=== PATIENT | female | born 1950 | race Caucasian/White ===

== ENCOUNTER 2022-09-20 14:08 | Inpatient (IN) | payer BC, MEDICARE, OTHER ==
[~2022-09-20] VITALS: Ht 157.5 cm; Wt 76.5 kg
[2022-09-20 15:29] LABS: BASO # 0.1 10^3/uL (0.0-0.2); BASO % 0.7 % (0.0-1.0); EOS # 0.1 10^3/uL (0.0-0.5); EOS % 1.4 % (0.0-3.0); HEMATOCRIT 42.7 % (36.0-47.0); HEMOGLOBIN 13.7 g/dl (12.0-15.5); LYMPH # 2.1 10^3/uL (1.5-5.0); MEAN CORPUSCULAR HEMOGLOBIN 28.7 pg (27.0-33.0); MEAN CORPUSCULAR HGB CONC 32.1 g/dl (32.0-36.5); MEAN CORPUSCULAR VOLUME 89.3 fl (80.0-96.0); MONO # 0.6 10^3/uL (0.0-0.8); MONO % 8.6 % (2.0-8.0); NEUTROPHILS # 4.3 10^3/uL (1.5-8.5); NEUTROPHILS % 59.9 % (36.0-66.0); PLATELET COUNT, AUTOMATED 258 10^3/uL (150-450); RED BLOOD COUNT 4.78 10^6/uL (4.00-5.40); WHITE BLOOD COUNT 7.2 10^3/uL (4.0-10.0)
[2022-09-20 15:53] LABS: RSV AMPLIFICATION NEGATIVE (NEGATIVE)
[2022-09-20 15:56] LABS: BLOOD UREA NITROGEN 16 MG/DL (7-18); CALCIUM LEVEL 10.3 MG/DL (8.8-10.2); CARBON DIOXIDE LEVEL 24 MEQ/L (21-32); CHLORIDE LEVEL 104 MEQ/L (98-107); ETHYL ALCOHOL (ETHANOL) < 0.003 % (0.000-0.010); FREE T4 1.49 NG/DL (0.76-1.46); GLOMERULAR FILTRATION RATE > 60.0 (>39); GLUCOSE, FASTING 198 MG/DL (70-100); MAGNESIUM LEVEL 2.3 MG/DL (1.8-2.4); POTASSIUM SERUM 5.9 MEQ/L (3.5-5.1); SODIUM LEVEL 133 MEQ/L (136-145)
[2022-09-20] MEDS ORDERED: LEVO175T2 PO (18:36)
[2022-09-20] MEDS ORDERED: METF-838 PO (18:36)
[2022-09-20] MEDS ORDERED: INFL10VL IV (18:36)
[2022-09-20] MEDS ORDERED: LISI2.5T9 PO (18:36)
[2022-09-20] MEDS ORDERED: METO1TAB32 PO (18:36)
[2022-09-20] MEDS ORDERED: ESTR62CR VG (18:36)
[2022-09-20] MEDS ORDERED: ELIQ5TAB PO (18:36)
[2022-09-20] MEDS ORDERED: METO1TAB7 PO (18:41)
[2022-09-20] MEDS ORDERED: HOME MED LIST COMPLETE! XX SCH (18:45)
[2022-09-20] MEDS ORDERED: DEXTROSE 50% 50 ML SYRINGE IV PRN (19:05)
[2022-09-20] MEDS ORDERED: GLUCOSE 4GM CHEW TABLET PO PRN (19:05)
[2022-09-20] MEDS ORDERED: GLUCAGON INJ 1MG VIAL SC PRN (19:05)
[2022-09-20 20:40] VITALS: BP 153/88
[2022-09-20] MEDS ORDERED: LEVEMIR (INSULIN DETEMIR) 1 UNITS/0.01ML SC SCH (21:00)
[2022-09-20] MEDS ORDERED: INSULIN LISPRO (NovoLOG) PER UNIT SC SCH (21:00)
[2022-09-20] MEDS: APIXABAN 5 MG TAB (ELIQUIS) PO SCH (21:53)
[2022-09-21] VITALS (7 sets, daily range): BP systolic 123–149; BP diastolic 69–82
[2022-09-21] MEDS: METOPROLOL TART 25 MG TABLET PO SCH ×5 (00:11→23:59)
[2022-09-21 06:38] LABS: BASO # 0.1 10^3/uL (0.0-0.2); BASO % 0.7 % (0.0-1.0); EOS # 0.1 10^3/uL (0.0-0.5); EOS % 1.8 % (0.0-3.0); HEMATOCRIT 38.5 % (36.0-47.0); HEMOGLOBIN 12.3 g/dl (12.0-15.5); LYMPH # 3.7 10^3/uL (1.5-5.0); LYMPH % 48.9 % (24.0-44.0); MEAN CORPUSCULAR HEMOGLOBIN 28.7 pg (27.0-33.0); MEAN CORPUSCULAR HGB CONC 31.9 g/dl (32.0-36.5); MEAN CORPUSCULAR VOLUME 89.7 fl (80.0-96.0); MONO # 0.6 10^3/uL (0.0-0.8); MONO % 8.2 % (2.0-8.0); NEUTROPHILS # 3.1 10^3/uL (1.5-8.5); NEUTROPHILS % 40.3 % (36.0-66.0); PLATELET COUNT, AUTOMATED 245 10^3/uL (150-450); RED BLOOD COUNT 4.29 10^6/uL (4.00-5.40); WHITE BLOOD COUNT 7.6 10^3/uL (4.0-10.0)
[2022-09-21 07:10] LABS: HEMOGLOBIN A1c 7.5 %
[2022-09-21 07:16] LABS: BLOOD UREA NITROGEN 16 MG/DL (7-18); CALCIUM LEVEL 10.3 MG/DL (8.8-10.2); CARBON DIOXIDE LEVEL 24 MEQ/L (21-32); CHLORIDE LEVEL 105 MEQ/L (98-107); CREATININE FOR GFR 0.76 MG/DL (0.55-1.30); GLOMERULAR FILTRATION RATE > 60.0 (>39); GLUCOSE, FASTING 149 MG/DL (70-100); POTASSIUM SERUM 4.4 MEQ/L (3.5-5.1); SODIUM LEVEL 134 MEQ/L (136-145)
[2022-09-21] MEDS ORDERED: FLUBLOK(EGG FREE)(QUAD)INFLUENZA VACC 0.5ML SYRINGE 18YRS & OLDER IM.IMMUN ONE (09:00)
[2022-09-21] MEDS: APIXABAN 5 MG TAB (ELIQUIS) PO SCH ×2 (10:18→20:29)
[2022-09-21] MEDS: INSULIN LISPRO (NovoLOG) PER UNIT SC SCH ×2 (12:00→17:30)
[2022-09-21] MEDS ORDERED: guaiFENesin DM LIQ 10ML UD PO PRN (16:25)
[2022-09-21] MEDS ORDERED: CETIRIZINE (ZyrTEC) 10 MG TAB PO ONE (17:00)
[2022-09-21] MEDS ORDERED: guaiFENesin DM LIQ 10ML UD PO ONE (17:00)
[2022-09-21] MEDS: FLUTICASONE PROP 0.05% NASAL SPRAY 16 GM (FLONASE) NARES SCH (18:00)
[2022-09-22 06:00] VITALS: BP 126/81
[2022-09-22] MEDS: FLUTICASONE PROP 0.05% NASAL SPRAY 16 GM (FLONASE) NARES SCH (06:00)
[2022-09-22 06:06] LABS: BASO # 0.1 10^3/uL (0.0-0.2); BASO % 0.9 % (0.0-1.0); EOS # 0.2 10^3/uL (0.0-0.5); EOS % 2.4 % (0.0-3.0); HEMATOCRIT 39.2 % (36.0-47.0); HEMOGLOBIN 12.4 g/dl (12.0-15.5); LYMPH # 3.1 10^3/uL (1.5-5.0); LYMPH % 43.8 % (24.0-44.0); MEAN CORPUSCULAR HEMOGLOBIN 28.6 pg (27.0-33.0); MEAN CORPUSCULAR HGB CONC 31.6 g/dl (32.0-36.5); MEAN CORPUSCULAR VOLUME 90.5 fl (80.0-96.0); MONO # 0.7 10^3/uL (0.0-0.8); MONO % 9.8 % (2.0-8.0); PLATELET COUNT, AUTOMATED 226 10^3/uL (150-450); RED BLOOD COUNT 4.33 10^6/uL (4.00-5.40)
[2022-09-22 06:07] VITALS: BP 126/81
[2022-09-22] MEDS: METOPROLOL TART 25 MG TABLET PO SCH (06:07)
[2022-09-22 06:34] LABS: BLOOD UREA NITROGEN 16 MG/DL (7-18); CALCIUM LEVEL 10.1 MG/DL (8.8-10.2); CARBON DIOXIDE LEVEL 25 MEQ/L (21-32); CHLORIDE LEVEL 105 MEQ/L (98-107); CREATININE FOR GFR 0.73 MG/DL (0.55-1.30); GLOMERULAR FILTRATION RATE > 60.0 (>39); GLUCOSE, FASTING 152 MG/DL (70-100); POTASSIUM SERUM 4.3 MEQ/L (3.5-5.1); SODIUM LEVEL 135 MEQ/L (136-145)
[2022-09-22] MEDS: APIXABAN 5 MG TAB (ELIQUIS) PO SCH (08:21)
[2022-09-22] MEDS ORDERED: METOPROLOL SUCC (TopROL XL) 50MG **XL** TAB PO SCH (09:00)
[2022-09-22] MEDS ORDERED: CETIRIZINE (ZyrTEC) 10 MG TAB PO SCH (09:00)
== END 2022-09-22 09:10 | disposition home or self-care (01) | DRG 309 ==
LOC: M ED 14:08 → EDBD 14:08 → M ED INP 17:28 → M PCU 20:42 → M MSPAV 09-21 18:50
PROVIDERS: ADMIT General Practice; ATTEND General Practice
PROC: B246ZZZ Ultrasonography of Right and Left Heart (ICD-10-PCS; principal; 2022-09-20)
DX: I48.20 Chronic atrial fibrillation, unspecified (principal); E87.1 Hypo-osmolality and hyponatremia; E11.9 Type 2 diabetes mellitus without complications; R55 Syncope and collapse; E03.9 Hypothyroidism, unspecified; D50.9 Iron deficiency anemia, unspecified; L40.50 Arthropathic psoriasis, unspecified; E87.5 Hyperkalemia; E83.52 Hypercalcemia; Z20.822 Contact with and (suspected) exposure to COVID-19; Z79.01 Long term (current) use of anticoagulants; Z79.890 Hormone replacement therapy; Z79.84 Long term (current) use of oral hypoglycemic drugs; Z79.899 Other long term (current) drug therapy; Z88.0 Allergy status to penicillin; Z85.528 Personal history of other malignant neoplasm of kidney; Z95.0 Presence of cardiac pacemaker